=== PATIENT | male | born 1965 ===

== ENCOUNTER 2018-06-09 09:20 | Emergency (ER) | payer OTHER ==
[2018-06-09 09:30] VITALS: BP 147/105
--- NOTE | 2018-06-09 10:29 | UC ---
Knee Pain HPI - HPI Summary HPI Summary: Patient slipped on the ice this morning and twisted his right knee. - History of Current Complaint Chief Complaint: UCLowerExtremity Stated Complaint: R KNEE PAIN Time Seen by Provider: 06/09/18 09:46 Hx Obtained From: Patient Onset/Duration: Sudden Onset, Lasting Hours, Still Present Severity Initially: Moderate Severity Currently: Moderate Pain Intensity: 9 Pain Scale Used: 0-10 Numeric Character: Sharp Aggravating Factor(s): Weight Bearing Alleviating Factor(s): Rest Associated Signs And Symptoms: Positive: Negative Able to Bear Weight: Yes - Allergies/Home Medications Allergies/Adverse Reactions: Allergies Allergy/AdvReac Type Severity Reaction Status Date / Time No Known Allergies Allergy Verified 06/09/18 09:30 Home Medications: Home Medications NK [No Home Medications Reported] 06/09/18 [History Confirmed 06/09/18] PMH/Surg Hx/FS Hx/Imm Hx Other Cancer History: STOMACH - Surgical History Surgical History: Yes Surgery Procedure, Year, and Place: ca - Family History Known Family History: Positive: Non-Contributory - Social History Alcohol Use: None Substance Use Type: None Smoking Status (MU): Never Smoked Tobacco Review of Systems All Other Systems Reviewed And Are Negative: Yes Constitutional: Positive: Negative Skin: Positive: Negative Respiratory: Positive: Negative Cardiovascular: Positive: Negative Gastrointestinal: Positive: Negative Musculoskeletal: Positive: Arthralgia Physical Exam Triage Information Reviewed: Yes Appearance: Well-Appearing, No Pain Distress, Well-Nourished Vital Signs: Initial Vital Signs Temp 98.7 F 06/09/18 09:26 Pulse 77 06/09/18 09:26 Resp 18 06/09/18 09:26 BP 147/105 06/09/18 09:26 Pulse Ox 98 06/09/18 09:26 Vital Signs Reviewed: Yes Eyes: Positive: Conjunctiva Clear ENT: Positive: Hearing grossly normal Neck: Positive: Supple Respiratory: Positive: No respiratory distress, No accessory muscle use Cardiovascular: Positive: Pulses Normal Abdomen Description: Positive: Soft Musculoskeletal: Positive: ROM Intact, No Edema, Other: - RIGHT KNEE: NO JOINT LINE TENDERNESS OR TENDERNESS OVER ANY BONY PROMINENCES. MCL AND LCL INTACT TO STRESS TESTING. NEG LACHMANS. NEG DRAWERS SIGNS. NEG MCMURRAYS. NO TENDERNESS OVER PATELLAR LIGAMENT OR QUADRICEPS TENDON. Neurological: Positive: Alert Psychological: Positive: Age Appropriate Behavior Skin: Negative: Rashes Diagnostics - Radiology RIGHT KNEE XRAY Radiology Interpretation Completed By: Radiologist Summary of Radiographic Findings: UNREMARKABLE Knee Pain Course/Dx - Course Course Of Treatment: X-RAY UNREMARKABLE FOR FRACTURE OR DISLOCATION. LIKELY SPRAIN. MARSHA WRAP AND CRUTCHES. ADVISED PATIENT TO USE CAUTION WITH CRUTCHES IT IS VERY ICY OUTSIDE. REST, ICE, COMPRESS, ELEVATE. FOLLOW-UP WITH PCP OR [facility] IF NOT IMPROVING EXPECTED. - Differential Dx/Diagnosis Provider Diagnosis: Right knee sprain Discharge - Sign-Out/Discharge Documenting (check all that apply): Patient Departure All imaging exams completed and their final reports reviewed: Yes - Discharge Plan Condition: Stable Disposition: HOME Patient Education Materials: Knee Sprain (ED) Forms: *Work Release Referrals: [facility] [Provider Group] - If Needed Additional Instructions: XRAY TODAY NEGATIVE FOR FRACTURE OR DISLOCATION. YOUR SYMPTOMS SHOULD IMPROVE SIGNIFICANTLY OVER THE NEXT 1-2 WEEKS. IF YOU DO NOT IMPROVE EXPECTED FOLLOW- UP WITH YOUR PCP OR ORTHO. YOU MAY BENEFIT FROM REPEAT IMAGING AT THAT TIME. OTC IBUPROFEN OR ALEVE NEEDED FOR DISCOMFORT. REST, ICE, COMPRESS, ELEVATE. MARSHA WRAP AND CRUTCHES NEEDED FOR SYMPTOM RELIEF. BE SURE TO GO THROUGH SLOW RANGE OF MOTION AND STRETCHING EXERCISES DAILY YOU ARE ABLE TO PREVENT STIFFENING UP AND MAKING THE DISCOMFORT WORSE. BE VERY CAREFUL NOT TO SLIP ON THE ICE IF YOU ARE USING THE CRUTCHES OUTSIDE. - Billing Disposition and Condition Condition: STABLE Disposition: Home
== END 2018-06-09 10:54 | disposition home or self-care (01) ==
LOC: UCEAST 09:20
DX: S83.91XA Sprain of unspecified site of right knee, initial encounter (principal); W00.0XXA Fall on same level due to ice and snow, initial encounter; Y92.9 Unspecified place or not applicable
CPT/HCPCS: 99203; G0463